=== PATIENT | male | born 1990 | race African-American/Black ===

== ENCOUNTER 2021-12-22 02:43 | Emergency (ER) | payer MEDICAID, OTHER ==
[~2021-12-22] VITALS: Ht 182.9 cm; Wt 124.9 kg
[2021-12-22 02:57] VITALS: BP 131/86
== END 2021-12-22 03:09 ==
LOC: ER 02:43
DX: F12.10 Cannabis abuse, uncomplicated (principal); R11.2 Nausea with vomiting, unspecified